=== PATIENT | female | born 2000 | race Asian ===

== ENCOUNTER 2019-07-15 18:03 | Inpatient (IN) ==
[2019-07-15 18:35] LABS: Appearance Urine Clear (Clear); Bacteria Urine Automated Negative (Negative); Bilirubin Urine Negative (Negative); Blood Urine 3+ (Negative); Color Urine Dark Yellow; Epithelial Cell Urine Auto 20-30 /lpf (0-5); Glucose Urine UA Negative (Negative); Ketones Urine Negative (Negative); Leukocyte Esterase Urine Negative (Negative); Nitrite Urine Negative (Negative); Protein Urine Negative (Negative); RBC Urine Automated >30 /hpf (0-4); Specific Gravity Urine 1.023 (1.000-1.030); Urobilinogen Urine Negative (Negative)
[2019-07-15 18:57] LABS: Amphetamines+Metham, Urine Pos (Neg); Barbiturates, Urine Neg (Neg); Benzodiazepine, Urine Pos (Neg); Cocaine, Urine Neg (Neg); MDMA (Ecstacy), Urine Neg (Neg); Methadone, Urine Neg (Neg); Opiate, Urine Neg (Neg); Phencyclidine, Urine Neg (Neg)
[2019-07-15 19:26] LABS: Basophils # (auto) 0.04 K/uL (0-0.2); Basophils % (auto) 0.5 %; Eosinophils # (auto) 0.14 K/uL (0-0.5); Eosinophils % (auto) 1.8 %; Hematocrit (blood only) 41.7 % (37-47); Hemoglobin 14.6 g/dL (12.0-16.0); Immature Granulocytes # (auto) 0.01 K/uL (0.00-0.02); Immature Granulocytes % (auto) 0.1 %; Lymphocytes # (auto) 2.45 K/uL (1.2-3.4); Lymphocytes % (auto) 32.3 %; Mean Corpuscular Hemoglobin 29.6 pg (25-34); Mean Corpuscular Volume 84.6 fL (80-100); Mean Platelet Volume 9.1 fL (7.4-10.4); Neutrophils # (auto) 4.64 K/uL (1.4-6.5); Neutrophils % (auto) 61.3 %; Platelet Count 355 K/uL (130-400); RDW Coefficient of Variation 11.9 % (11.5-14.5); RDW Standard Deviation 36.4 fL (36.4-46.3); Red Blood Count 4.93 M/uL (4.2-5.4); White Blood Count 7.58 K/uL (4.8-10.8)
[2019-07-15 19:42] LABS: Alanine Aminotransferase 27 U/L (12-78); Albumin Level 4.2 gm/dl (3.4-5.0); Aspartate Aminotransferase 12 U/L (15-37); BUN Creatinine Ratio 8.5 (10-20); Blood Urea Nitrogen 7 mg/dl (7-18); Calcium 9.3 mg/dl (8.5-10.1); Carbon Dioxide 28 mmol/L (21-32); Chloride 103 mmol/L (98-107); Est GFR (African American) 121.2; Est GFR (Non-African American) 104.6; Glucose 96 mg/dl (70-99); Potassium 2.8 mmol/L (3.5-5.1); Sodium 139 mmol/L (136-145)
[2019-07-15] MEDS ORDERED: POTASSIUM CHLORIDE 20 MEQ TABCR PO STA (19:47)
[2019-07-15 19:53] LABS: Albumin Globulin Ratio 1.2 (0.9-2); Alkaline Phosphatase 79 U/L (45-117); Bilirubin,Total 0.5 mg/dl (0.2-1); Globulin 3.6 gm/dl (2.5-4.0); Total Protein 7.8 gm/dl (6.4-8.2)
[2019-07-15 20:26] LABS: Acetaminophen < 2 ug/ml (10-30); Salicylate < 1.7 mg/dl (2.8-20)
--- NOTE | 2019-07-15 21:13 | Emergency Department Note ---
Entered by Richelle Shepherd acting as a scribe for Александр Christopher MD History of Present Illness General Chief complaint: Mental Health Evaluation Stated complaint: MHID Time Seen by Provider: 07/15/19 18:10 Source: patient and other ([facility]) History of Present Illness Onset (ago): week(s) 2 Location: head (mental health evaluation ) Pain Consistency: + constant Associated symptoms: + other (SI with plan to hang) The patient is a 18 year old female with a PMHx pertinent for depression, psoriasis, and no other medical problems indicated on Cartilix who was sent to the Emergency Room today from [facility] for a mental health evaluation. The patient explains that her depression has worsened in the past 2 weeks due to family worries, recent college campus transfer, and psoriasis diagnosis. She states that she is not comfortable at her new college campus because it is too crowded and she does not like to be around that many people. The patient admits that she has been isolating herself in her room and missing class. She also admits to SI with plan to hang herself and went to the store for rope. The patient is willing to sign herself in as an inpatient for help. She offers no additional concerns at this time. Home Medications Home Medications Medication Instructions Recorded Confirmed Type Iron Jelly 1 dose PO DAILY 07/15/19 07/15/19 History Allergies Allergy/AdvReac Type Severity Reaction Status Date / Time No Known Allergies Allergy Unverified 07/15/19 18:47 Past Med/Surg History Medical History (Updated 07/15/19 @ 22:56 by Александр Chrisotpher MD) Depression Psoriasis Social History Feels Safe at Home: Yes Smoking Status: Never smoker Tobacco Type: cigarettes ; Review of Systems See HPI for pertinent positives & negatives. and A total of 10 systems reviewed and were otherwise negative Physical Exam Vital Signs Vital Signs - 24 hr 07/15/19 18:00 07/15/19 20:00 Temperature 36.7 C Temperature Source Oral Pulse Rate 71 Pulse Rate [Right Finger] 68 Pulse Rhythm Regular Pulse Strength Normal Respiratory Rate 20 16 Respiratory Effort / Characteristics Non-Labored Non-Labored Respiratory Depth Normal Normal Respiratory Pattern Regular Regular Blood Pressure 112/76 Blood Pressure [Right Arm] 106/69 Blood Pressure Mean 88 Blood Pressure Mean [Right Arm] 81 Blood Pressure Position Sitting Blood Pressure Position [Right Arm] Sitting Pulse Oximetry 98 98 Oxygen Delivery Method Room Air Room Air GENERAL: Flat affect, well nourished, non-toxic. EYE EXAM: Normal conjunctiva. PERRL, no anisocoria and EOM's grossly intact w/o pain. OROPHARYNX: Moist mucus membranes. Grossly normal dentition. NECK: Supple, no nuchal rigidity, no adenopathy, non-tender. no signs of m eningismus. LUNGS: Clear to auscultation. Normal chest wall mechanics. HEART: NSR, no MRG. ABDOMEN: Abdomen soft, non-tender, normo-active bowel sounds, no masses, no rebound or guarding. BACK: No CVA TTP. SKIN: No rashes and no bruising. UPPER EXTREMITIES: Upper extremities are grossly normal. NEURO EXAM: A&O x3, cranial nerves II-XII grossly intact, normal speech, moves all 4 extremities on command w/o issue. Psych: Causative SI, no HI or AVH Course Course 1819: Past medical records reviewed. The patient was evaluated in room A07. A complete history and physical exam was performed. 2100: The patient is accepted for admission at [address] [place] [address]. The patient verbally expressed understanding and agreement of the treatment plan. The patient will be evaluated for further treatment. Administered Medications Discontinued Medications Potassium Chloride (Klor-Con M20) 40 meq PO NOW STA Stop: 07/15/19 19:48 Last Admin: 07/15/19 21:01 Dose: 40 meq Documented by: [id number] Medical Decision Making Differential Diagnosis Differential diagnosis includes but is not limited to etiologies such as mood disorder, infection, hypoglycemia, electrolyte abnormalities, cardiac sources, intracerebral event, toxicologic, neurologic, as well as others were entertained. Medical Records Attestation: I reviewed the patient's medical records. Home Medications Current Medication List: was personally reviewed by me Laboratory Data Attestation: I reviewed the patient's lab results. Result diagrams: 07/15/19 19:13 07/15/19 19:13 Lab Results 07/15/19 07/15/19 07/15/19 Range/Units 18:23 18:23 19:13 WBC 7.58 (4.8-10.8) K/uL RBC 4.93 (4.2-5.4) M/uL Hgb 14.6 (12.0-16.0) g/dL Hct 41.7 (37-47) % MCV 84.6 (80-100) fL MCH 29.6 (25-34) pg MCHC 35.0 (32-36) g/dL RDW Std Deviation 36.4 (36.4-46.3) fL RDW Coeff of Flaco 11.9 (11.5-14.5) % Plt Count 355 (130-400) K/uL MPV 9.1 (7.4-10.4) fL Immature Gran % (Auto) 0.1 % Neut % (Auto) 61.3 % Lymph % (Auto) 32.3 % [place] % (Auto) 4.0 % Eos % (Auto) 1.8 % Baso % (Auto) 0.5 % Immature Gran # (Auto) 0.01 (0.00-0.02) K/uL Neut # (Auto) 4.64 (1.4-6.5) K/uL Lymph # (Auto) 2.45 (1.2-3.4) K/uL [place] # (Auto) 0.30 (0.11-0.59) K/uL Eos # (Auto) 0.14 (0-0.5) K/uL Baso # (Auto) 0.04 (0-0.2) K/uL Sodium (136-145) mmol/L Potassium (3.5-5.1) mmol/L Chloride (98-107) mmol/L Carbon Dioxide (21-32) mmol/L Anion Gap (3-11) BUN (7-18) mg/dl Creatinine (0.6-1.2) mg/dl Est Cr Clr Drug Dosing Est GFR ( Amer) Est GFR (Non-Af Amer) BUN/Creatinine Ratio (10-20) Glucose (70-99) mg/dl Calcium (8.5-10.1) mg/dl Total Bilirubin (0.2-1) mg/dl AST (15-37) U/L ALT (12-78) U/L Alkaline Phosphatase (45-117) U/L Total Protein (6.4-8.2) gm/dl Albumin (3.4-5.0) gm/dl Globulin (2.5-4.0) gm/dl Albumin/Globulin Ratio (0.9-2) TSH (0.300-4.500) uIu/ml Urine Color Dark Yellow Urine Appearance Clear (Clear) Urine pH 7.0 (4.5-7.5) Ur Specific [place] 1.023 (1.000-1.030) Urine Protein Negative (Negative) Urine Glucose (UA) Negative (Negative) Urine Ketones Negative (Negative) Urine Blood 3+ H (Negative) Urine Nitrite Negative (Negative) Urine Bilirubin Negative (Negative) Urine Urobilinogen Negative (Negative) Ur Leukocyte Esterase Negative (Negative) Urine WBC (Auto) 1-5 (0-5) /hpf Urine RBC (Auto) >30 H (0-4) /hpf U Hyaline Cast (Auto) 5-10 H (0-5) /lpf U Epithel Cells (Auto) 20-30 H (0-5) /lpf Urine Bacteria (Auto) Negative (Negative) Salicylates (2.8-20) mg/dl Urine Opiates Screen Neg (Neg) Ur Methadone, Qual Neg (Neg) Acetaminophen (10-30) ug/ml Urine Barbiturates Neg (Neg) Ur Phencyclidine (PCP) Neg (Neg) U Amphetamin/Meth Scrn Pos H (Neg) MDMA (Ecstasy) Screen Neg (Neg) U Benzodiazepines Scrn Pos H (Neg) Ur Cocaine Metabolite Neg (Neg) U Marijuana (THC) Screen Neg (Neg) Ethyl Alcohol mg/dL (0-3) mg/dl 07/15/19 07/15/19 07/15/19 Range/Units 19:13 19:13 19:13 WBC (4.8-10.8) K/uL RBC (4.2-5.4) M/uL Hgb (12.0-16.0) g/dL Hct (37-47) % MCV (80-100) fL MCH (25-34) pg MCHC (32-36) g/dL RDW Std Deviation (36.4-46.3) fL RDW Coeff of Flaco (11.5-14.5) % Plt Count (130-400) K/uL MPV (7.4-10.4) fL Immature Gran % (Auto) % Neut % (Auto) % Lymph % (Auto) % [place] % (Auto) % Eos % (Auto) % Baso % (Auto) % Immature Gran # (Auto) (0.00-0.02) K/uL Neut # (Auto) (1.4-6.5) K/uL Lymph # (Auto) (1.2-3.4) K/uL [place] # (Auto) (0.11-0.59) K/uL Eos # (Auto) (0-0.5) K/uL Baso # (Auto) (0-0.2) K/uL Sodium 139 (136-145) mmol/L Potassium 2.8 L (3.5-5.1) mmol/L Chloride 103 (98-107) mmol/L Carbon Dioxide 28 (21-32) mmol/L Anion Gap 8.0 (3-11) BUN 7 (7-18) mg/dl Creatinine 0.81 (0.6-1.2) mg/dl Est Cr Clr Drug Dosing Not Reportable Est GFR ( Amer) 121.2 Est GFR (Non-Af Amer) 104.6 BUN/Creatinine Ratio 8.5 L (10-20) Glucose 96 (70-99) mg/dl Calcium 9.3 (8.5-10.1) mg/dl Total Bilirubin 0.5 (0.2-1) mg/dl AST 12 L (15-37) U/L ALT 27 (12-78) U/L Alkaline Phosphatase 79 (45-117) U/L Total Protein 7.8 (6.4-8.2) gm/dl Albumin 4.2 (3.4-5.0) gm/dl Globulin 3.6 (2.5-4.0) gm/dl Albumin/Globulin Ratio 1.2 (0.9-2) TSH 1.340 (0.300-4.500) uIu/ml Urine Color Urine Appearance (Clear) Urine pH (4.5-7.5) Ur Specific [place] (1.000-1.030) Urine Protein (Negative) Urine Glucose (UA) (Negative) Urine Ketones (Negative) Urine Blood (Negative) Urine Nitrite (Negative) Urine Bilirubin (Negative) Urine Urobilinogen (Negative) Ur Leukocyte Esterase (Negative) Urine WBC (Auto) (0-5) /hpf Urine RBC (Auto) (0-4) /hpf U Hyaline Cast (Auto) (0-5) /lpf U Epithel Cells (Auto) (0-5) /lpf Urine Bacteria (Auto) (Negative) Salicylates < 1.7 L (2.8-20) mg/dl Urine Opiates Screen (Neg) Ur Methadone, Qual (Neg) Acetaminophen < 2 L (10-30) ug/ml Urine Barbiturates (Neg) Ur Phencyclidine (PCP) (Neg) U Amphetamin/Meth Scrn (Neg) MDMA (Ecstasy) Screen (Neg) U Benzodiazepines Scrn (Neg) Ur Cocaine Metabolite (Neg) U Marijuana (THC) Screen (Neg) Ethyl Alcohol mg/dL < 3.0 (0-3) mg/dl Blood Pressure Blood Pressure Findings: Low blood pressure Blood Pressure Disposition: Referred to patients primary care provider MDM Narrative The patient is a 18 year old female with a PMHx pertinent for depression, psoriasis, and no other medical problems indicated on Cartilix who was sent to the Emergency Room today from [facility] for a mental health evaluation. She was seen and evaluated the bedside. The patient has been a referral from Due to concern for active SI. The patient reportedly had a prior thoughts of buying a rope and hang herself. Patient is a voluntary did have a 302 petition sent. The patient did have blood work completed. Mild hypokalemia. This was repleted. The patient was medically cleared seen and evaluated by psych casey saw operator made a referral and the patient was accepted to [facility]. Impression & Plan Suicide ideation, Depressed mood, Hypokalemia Discharge Plan Visit Data Chief Complaint: Mental Health Evaluation Stated Complaint: MHID ED Provider: Александр Christopher Discharge Problem: Suicide ideation, Depressed mood, Hypokalemia Patient Disposition: Admitted As Inpatient Discharge Instructions Interventions: ED Discharge Assessment Last Done: 07/15/19 22:22 The tasha's documentation has been prepared under my direction and personally reviewed by me in its entirety. I confirm that the note above accurately reflects all work, treatment, procedures, and medical decision making performed by me.
[2019-07-15] MEDS ORDERED: ACETAMINOPHEN 325 MG TAB PO PRN (21:53)
[2019-07-15] MEDS ORDERED: ALUMINUM/MAGNESIUM SUSP 30 ML UDC PO PRN (21:53)
[2019-07-15] MEDS ORDERED: BISMUTH SUBSALICYLATE PER ML OMNICELL CHARGE PO PRN (21:53)
[2019-07-15] MEDS ORDERED: SODIUM CHLORIDE 0.65% NA SOLN 45 ML (OCEAN) PRN (21:53)
[2019-07-15] MEDS ORDERED: MAGNESIUM HYDROXIDE SUSP 30 ML UDC PO PRN (21:53)
--- NOTE | 2019-07-16 09:02 | History & Physical ---
Date of Service July 16, 2019 Impression / Recommendations Impression 18-year-old female admitted voluntarily for inpatient psychiatric treatment on 07/15/19 after presenting to the ED via police, upon referral from [facility]. Pt admitted to increased symptoms of depression over the past two weeks, accompanied by intermittent SI. She had reported researching ways to end her life, and had reportedly looked at rope at [employer], admitting to identifying a place to hang herself. These statements were reported during a urgent therapy visit at [facility], and patient was recommended for mental health evaluation. 302 petitioning statement was completed, though patient did sign involuntarily for treatment. She signed a 72-hour notice requesting to leave treatment, which expires on 07/19/2019 at 0900. Expectations of voluntary treatment were explained to the patient, who was informed by multiple staff that she will not be discharged today. Patient was encouraged to attend group programming, and participate in discharge and safety planning to ensure that she is appropriate for discharge within the timeline requested. Due to level of distress related to admission, patient was not able to participate in a productive conversation regarding antidepressant options. It seems as though they may be beneficial for her as it is possible she is minimizing reports of depressive symptoms. It is also possible that her depression is highly episodic, and that initial therapy without medications may be appropriate as well. We will attempt to gather collateral information from outpatient supports in order to determine the severity of her reported depression. Patient states she is not currently suicidal; however, reports meeting 302 petitioning statement are highly concerning for potential to act on multiple researched plans. At this time, inpatient psychiatric admission is medically necessary due to risk of acute harm to self if she is discharged without adequate medication of risk factors. Pt did sign a 72-hour notice as a request to leave treatment AMA. This request was addressed by multiple staff, including psychiatrist and this PA-C. Statements made in 302 petition are concerning and demonstrate patient is at acute risk of harm to self if she does not receive adequate psychiatric intervention. At this time, it is not appropriate for patient to be discharged, as there has been no communication with supports, no aftercare arrangements made, and no engagement in treatment to suggest that patient's risk factors have been mitigated. It was decided that patient requires ongoing inpatient psychiatric treatment. It is possible that she may require an involuntary commitment if she continues to be resistant to treatment and demanding to leave, 302 petitioning statement remains on her chart. Dr. Cecilia Kothari was directly involved in review and discussion of the patient's case and participated in medical decision making regarding treatment recommendations. (1) Suicide ideation: 07/16 - Admitted to a locked inpatient behavioral health unit, on q15 minute safety checks - Encourage medication initiation/adjustments as indicated - Encourage participation in group and recreational therapies - Gather collateral information from outpatient providers - Suggest family meeting to involve outpatient supports in safety planning - Arrange appropriate aftercare (2) Depressed mood: 07/16 - Attempt to gather collateral information to determine extent of depressive symptoms. By patient's report alone, it is not clear that antidepressant medications are indicated; however, it is belived that patient may be minimizing her symptoms - additional history from friends would be helpful to further clarify this. - Consider trail of an SSRI if indicated; fluoxetine may be a decent choice given concern for weight and history of disordered eating behaviors - Coordinate with [facility] regarding therapy appointment, willingness to continue seeing patient for aftercare following discharge - Will need a psychiatric prescriber if medications are offered - Coordinate with [employer] regarding academic standing and disciplinary actions related to falsified information - Encourage participation in group and recreational programming - Encourage 1:1 counseling to process individual stressors and ways to cope with her depression - Support meeting with either parents or friends (3) Hypokalemia: 07/16 - Presented as hypokalemic in the ED - K=2.8. Pt was given 40 mEq in the ED - Potassium rechecked this morning, remaining improved but still low - K=3.2 - Generally, it would be expected that nutritional intake would allow for continued improvement; however, patient is admitted to restrictive eating behaviors, having refused dinner and breakfast. - Since we cannot rely on nutritional intake alone, and additional dose of 40mEq potassium was ordered, and labs will be rechecked in the morning - Pt was strongly encouraged to eat meals routinely on the unit, though presently states she will not be eating here (4) Disordered eatin/27 - Reported history of binge-eating and purging behavior for a period of 1 year. States she has not engaged in these behavior in the past year - Pt has reported routine dietary supplements and states she is not eating meals routinely at home as "I'm not hungry" and "I'm trying to lose weight - Pt was educated on importance of fueling our bodies and minds in a healthy way, and that this is possible even with desire for weight loss - Will attempt initial encouragement; however, staff was requested to continue to observe nutritional intake and for any suspicious behavior surrounding meals - If patient is not eating meals consistently, a dietary consult should be pursued - it is possible eating disorder protocol may be necessary as well Eating disorder type: unspecified eating disorder Qualified Code(s): F50.9 - Eating disorder, unspecified Risk Factors Assessment Male: No : No Do You Have Access To A Gun?: No Health Problems: No Mental Health Diagnoses: No Previous Attempt: No Previous Psychiatric Hospitalization: No Hopelessness: No Smoker: Yes Protective Factors Assessment : No Responsible for Young Children: No Employed: No Stable Relationships: No Supportive Family: Yes (but geographyically isolated; doesn't share MH issues with parents) Psychiatric History Identifying Data WILBERTO DEE is a 18-year-old F who currently lives in [place]. Pt has no prior psychiatric treatment, and was admitted on 07/15/19 21:53 on a 201 voluntary commitment for severe depressive symptoms with consideration to commit suicide by hanging herself. 302 Petitioning Statement was completed by [facility]. Information is gathered from ED documentation and the patient herself. Chief Complaint "Well, actually. Now I'm pretty sad. I just want to go home." History of Present Illness Wilberto Dee (Bella) is a 18-year-old Swazi female admitted voluntarily for inpatient psychiatric treatment on 07/15/2019, after presenting to the ED via police. It was reported that patient had been seen for an urgent therapy visit at [facility], where she had disclosed increased depression and suicidal thoughts. Patient had admitted to researching multiple ways that she could, ultimately deciding on hanging. It was reported she was also researching humane ways to end the life of her cat as well. 302 Petitioning Statement completed by Richelle at [facility], and as summarized reads: "BANDAR reported that she has been researching "pain-free and beautiful" ways to over the last 2 weeks, including cutting, hanging, and shooting herself...reported that she has looked at rope at [employer] and identified a place to hang herself...BANDAR identified her cat as her "best friend" and said that she has researched ways to kill the cat along with herself...she has not been attending class or socializing,...reports few supports here, and said that she does not feel she can tell her parents how she feels, for fear that they'll be disappointed...She reported paranoid thoughts a bout "an old man" following her; she said she has not seen this person but doesn't feel comfortable going out at night because of this fear. She also reported seeing grass, butterflies, and a garden on her ceiling, and said she doesn't know if this is a "dream" or hallucination...She reported no reasons to live when asked and said she spends her days alone in her room researching ways to ." Patient ultimately signed in for treatment voluntarily; however, 302 petitioning statement remains in her chart. Patient did sign a 72-hour notice, requesting to leave treatment AMA. This notice expires on 07/19/2018 at 0900. Patient is initially cooperative with psychiatric evaluation. She admits that she has been feeling depressed for "a long time". She states that currently she is "sad" as "I just want to go home." Patient was asked to explain the situation that led to her presenting to the emergency room. Patient states "I just been feeling depressed, but I was not even thinking about the hospital." Patient states that she disclosed her low mood and suicidal thoughts to a friend, who encouraged her to talk with a therapist. Patient states "I went and we talked about things, it actually help me feel better. I do not know why they wanted me to come here." Patient does admit that she had difficulty understanding the steps to her admission process, and remains unsure as to why individuals are so concerned about her thinking and depression. Patient admits to episodes of suicidal ideation, but states "I do not think I have ever seriously thought about doing it." Patient shares with this provider that 2 weeks prior to this admission she had been experiencing depressed mood, and was on the phone with a friend from [place]. Patient states "I was depressed and I had alcohol. We were sharing sad stories with each other, and looking up ways we could commit suicide." Even after multiple questions, it remains unclear if her friend was encouraging her to research or discouraging this behavior and offering appropriate support. Nonetheless, patient states she did not act on the thoughts at that time. She states that one week ago, she received an email about having falsified information to the [employer] (falsifying a letter regarding active mental health treatment in order to reduce credit load). Patient states that she was concerned she would be sent home to [place] and became acutely depressed. During a routine trip to the grocery store, she states she passed a rope which she "checked". Patient states she did not purchase the rope, though did not think about using it to end her life. Patient does admit early in our conversation that "I do feel depressed a lot." Duration of the symptoms is described as "for a long time, months, or even year s. I always have it." Patient states that "I did not know at first what it was, I used to like to go places and hanging out with people. Now I do not want to go out, I like being alone with just my cat." Patient admits that she has been more isolative since the summer of this year. She also admits to difficulty falling asleep, which is led to flipping her nights and days. Patient states that she tends to sleep during the day, and is more active in the evenings "when people are not around and I do not have to deal with them." She admits to difficulty with concentrating and decreased appetite. She admits to episodes of hopelessness. Patient states her suicidal ideation is intermittent. Presently, reason for not acting on these thoughts is her perceived obligation to her family. Patient states that her parents are "older" and that she needs to return to [place] after she finishes her degree in order to care for her family. Patient states her parents are not aware of her current symptoms or her hospitalization, as "they are already in family conflict. I do not want to worry them more." Patient admits to anxiety, specifically as it is related to a diagnosis of psoriasis. She states that transfer from [facility] to [place] has been difficult for her due to the larger class size. Patient states that when her psoriasis flares, she experiences increased anxiety related to "staring at me or making comments about my skin." Patient states this is not a concern for her prior to transferring to main campus at [facility]. Pt denies current SI. She denies HI, SIB, A/V hallucinations, paranoia, stuart/hypomania, other symptoms more suggestive of a bipolar presentation, OCD, PTSD, and other specific psychiatric symptoms. She does admit to a history of binging and purging behaviors for a period of one year, last engaging in this behavior about 1 year ago. Patient admits that she has been focused on weight loss, is currently taking a weight loss supplement, and has been restricting her eating. Patient states "I only eat when I am hungry." She is vague when answering questions related to her eating; however, is not even able to admit to eating one meal a day. She does admit to refusing dinner last evening and not eating breakfast this morning. Past Psychiatric History Current Psychiatric Diagnosis: Denies prior diagnoses Outpatient Services: None, one urgent therapy session at [facility] prior to admission Previous Psych Admissions: None Do You Have Access To A Gun?: No Describe Attempts in the Past: Denies/None Past Medication Trials: None Past Head Trauma/Neuro History History of Concussion/Seizure: No Allergies Allergy/AdvReac Type Severity Reaction Status Date / Time No Known Allergies Allergy Unverified 07/15/19 18:47 Home Medications Home Medications Medication Instructions Recorded Confirmed Type Iron Jelly 1 dose PO DAILY 07/15/19 07/15/19 History Family History Family History of: Doesn't Know (has never been discussed with patient) Alcohol History Hx of Alcohol Use Over the Past 12 Months: Yes AUDIT Total Score: 0 Patient admits to periodic consumption of alcohol. Generally in social situations, though 2 weeks prior to admission was drinking alone while on the phone with a friend. Patient states consumption ranges from "couple beers where I cannot really feel anything from it" to "getting drunk". Patient denies any significant concerns related to her current alcohol consumption. Smoking Use Have You Smoked or Used Tobacco Products in the Last 30 Days: Yes tobacco type: cigarettes and e-cigarettes Smoking Status: Light tobacco smoker (5-10 cigarettes at most) Substance History Hx of Prescription Med Misuse Over the Past 12 Months: No Hx of Over the Counter Med Misuse Over the Past 12 Months: No Hx of Inhalent Misuse Over the Past 12 Months: No Hx of Organic Substance Use Over the Past 12 Months: No Hx of Illegal Substances/Street Drug Use Over Past 12 Months: Yes (Pt. states she takes diet pills from [facility]) Problems as a Result of Past Substance Use: None Identified Patient denies regular use of marijuana. She denies any experimentation with i llicit substances. Patient does admit to taking a dietary supplement from [place], and is unsure of contents. Patient was informed of positive drug screen for methamphetamine/amphetamine and benzodiazepines. Patient is unsure the cause of this, denies consuming any of the substances. Personal History Living Arrangements: Dorm (With one roommate, 2 pets) Born In: [place], parents still reside there Highest Grade Completed: Some College (Currently in [employer] at [employer], majoring in economics) Highest Grade Completed Comment: Patient recently switched from the [facility] to [place] - fall Employment Status: Student Marital Status: Single Number Of Children: None Beliefs That Will Affect Care: None Current Legal Problems: No Hx Traumatic Life Events: Yes Psychological Trauma History Comment: Patient states that 4 years ago, her grandfather in their home. It was patient who eventually found him. Struggles with guilt related to having found him sooner. Denies history of physical, emotional, or sexual abuse. Patient History Medical History Depression Psoriasis Family History Grandfather (Maternal) Heart disease Social History Preferred Language: Cuban Communication Ability: Effective Beliefs That Will Affect Care: None Feels Safe at Home: Yes Smoking Status: Light tobacco smoker Tobacco Type: cigarettes ; Review of Systems Review of Systems: Constitutional: denied Cardiovascular: denied Respiratory: denied Gastrointestinal: denied Neurological: denied Psychiatric: denies symptoms other than stated above Total of at least 10 systems reviewed, pertinent positives as above and in HPI. Physical Exam Psychiatric: Orientation: alert, oriented x 3 and cooperative (Officially) Initially superficially pleasant; however became argumentative when requesting discharge Apperance: appropriately dressed, appropriately groomed and appeared stated age Obese appearing female seated in no acute distress. She is casually dressed, wearing a long sleeve T-shirt leggings. Patient has shoulder- length hair, that is dyed a light brown color with roots a darker brown. She is wearing trendy corrective lenses and nails are neatly manicured. Level of hygiene and grooming appears appropriate. Eye Contact: good eye contact Motor Behavior: steady gait and station and no abnormal motor movements (Mild restlessness observed, as patient is picking at fingernails) Speech: normal rate/rhythm/volume of speech Affect: + blunted affect and mood congruent with affect Mood: + depressed mood ("I just been feeling depressed" and "I do feel depression a lot") and + anxious mood (Since admission, related to not being discharged today) Thought Process: goal directed thought process, clear/coherent thought process and thought association intact Thought Content: reality based without delusions, + hopelessness (Intermittently) and + loneliness Suicidal Thoughts: denies suicidal thoughts (Presently, but admits to increased SI over the past 2 weeks) and denies suicidal intent ("I do not think I would have seriously done it"); + reports suicidal plan (Researched multiple plans, had visualized rope, location picked out) Homicidal Thoughts: denies homicidal thoughts Hallucinations: no auditory hallucinations and no visual hallucinations Reports 2 occasions of seemingly hypnagogic visualizati on of "a garden on the ceiling" Cognition: remote memory grossly intact, attention grossly intact and language grossly intact (mild language/comprehension barrier due to varying cultures) Insight: + limited insight Judgement: + limited judgement Vital Signs (Past 24 Hours): Last Vital Signs Temp 36.4 C L 07/16/19 07:08 Pulse 91 H 07/16/19 07:09 Resp 18 07/16/19 07:08 BP 107/72 07/16/19 07:09 Pulse Ox 96 07/15/19 22:35 Exam Statement: A physical exam was performed in the ER prior to admission to the unit by Dr. Александр Christopher MD. I accept that physical as correct/medical clearance for the inpatient physical exam. Results & Data Laboratory Results Laboratory Results - last 24 hr 07/15/19 07/15/19 07/15/19 18:23 18:23 18:23 WBC RBC Hgb Hct MCV MCH MCHC RDW Std Deviation RDW Coeff of Flaco Plt Count MPV Immature Gran % (Auto) Neut % (Auto) Lymph % (Auto) [place] % (Auto) Eos % (Auto) Baso % (Auto) Immature Gran # (Auto) Neut # (Auto) Lymph # (Auto) [place] # (Auto) Eos # (Auto) Baso # (Auto) Sodium Potassium Chloride Carbon Dioxide Anion Gap BUN Creatinine Est Cr Clr Drug Dosing Est GFR ( Amer) Est GFR (Non-Af Amer) BUN/Creatinine Ratio Glucose Calcium Total Bilirubin AST ALT Alkaline Phosphatase Total Protein Albumin Globulin Albumin/Globulin Ratio TSH Urine Color Dark Yellow Urine Appearance Clear Urine pH 7.0 Ur Specific [place] 1.023 Urine Protein Negative Urine Glucose (UA) Negative Urine Ketones Negative Urine Blood 3+ H Urine Nitrite Negative Urine Bilirubin Negative Urine Urobilinogen Negative Ur Leukocyte Esterase Negative Urine WBC (Auto) 1-5 Urine RBC (Auto) >30 H U Hyaline Cast (Auto) 5-10 H U Epithel Cells (Auto) 20-30 H Urine Bacteria (Auto) Negative Salicylates Urine Opiates Screen Neg Ur Methadone, Qual Neg Acetaminophen Urine Barbiturates Neg Ur Phencyclidine (PCP) Neg U Amphetamines Confirm Pending U Amphetamin/Meth Scrn Pos H U Methamphetamin Confrm Pending MDMA (Ecstasy) Screen Neg U OH-Alprazolam Confrm Pending U Benzodiazepines Scrn Pos H 7-Amino Clonazepam Pending Ur Nordiazepam Confirm Pending U OH-ethylflurazepam Pending U Lorazepam Cnf GC/MS Pending U Oxazepam Confm GC/MS Pending Ur Temazepam Confirm Pending U OH-Triazolam Confirm Pending U OH-Midazolam Confirm Pending Ur Cocaine Metabolite Neg U Marijuana (THC) Screen Neg Ethyl Alcohol mg/dL 07/15/19 07/15/19 07/15/19 19:13 19:13 19:13 WBC 7.58 RBC 4.93 Hgb 14.6 Hct 41.7 MCV 84.6 MCH 29.6 MCHC 35.0 RDW Std Deviation 36.4 RDW Coeff of Flaco 11.9 Plt Count 355 MPV 9.1 Immature Gran % (Auto) 0.1 Neut % (Auto) 61.3 Lymph % (Auto) 32.3 [place] % (Auto) 4.0 Eos % (Auto) 1.8 Baso % (Auto) 0.5 Immature Gran # (Auto) 0.01 Neut # (Auto) 4.64 Lymph # (Auto) 2.45 [place] # (Auto) 0.30 Eos # (Auto) 0.14 Baso # (Auto) 0.04 Sodium 139 Potassium 2.8 L Chloride 103 Carbon Dioxide 28 Anion Gap 8.0 BUN 7 Creatinine 0.81 Est Cr Clr Drug Dosing Not Reportable Est GFR ( Amer) 121.2 Est GFR (Non-Af Amer) 104.6 BUN/Creatinine Ratio 8.5 L Glucose 96 Calcium 9.3 Total Bilirubin 0.5 AST 12 L ALT 27 Alkaline Phosphatase 79 Total Protein 7.8 Albumin 4.2 Globulin 3.6 Albumin/Globulin Ratio 1.2 TSH 1.340 Urine Color Urine Appearance Urine pH Ur Specific [place] Urine Protein Urine Glucose (UA) Urine Ketones Urine Blood Urine Nitrite Urine Bilirubin Urine Urobilinogen Ur Leukocyte Esterase Urine WBC (Auto) Urine RBC (Auto) U Hyaline Cast (Auto) U Epithel Cells (Auto) Urine Bacteria (Auto) Salicylates < 1.7 L Urine Opiates Screen Ur Methadone, Qual Acetaminophen < 2 L Urine Barbiturates Ur Phencyclidine (PCP) U Amphetamines Confirm U Amphetamin/Meth Scrn U Methamphetamin Confrm MDMA (Ecstasy) Screen U OH-Alprazolam Confrm U Benzodiazepines Scrn 7-Amino Clonazepam Ur Nordiazepam Confirm U OH-ethylflurazepam U Lorazepam Cnf GC/MS U Oxazepam Confm GC/MS Ur Temazepam Confirm U OH-Triazolam Confirm U OH-Midazolam Confirm Ur Cocaine Metabolite U Marijuana (THC) Screen Ethyl Alcohol mg/dL 07/15/19 07/16/19 19:13 07:13 WBC RBC Hgb Hct MCV MCH MCHC RDW Std Deviation RDW Coeff of Flaco Plt Count MPV Immature Gran % (Auto) Neut % (Auto) Lymph % (Auto) [place] % (Auto) Eos % (Auto) Baso % (Auto) Immature Gran # (Auto) Neut # (Auto) Lymph # (Auto) [place] # (Auto) Eos # (Auto) Baso # (Auto) Sodium Potassium 3.2 L Chloride Carbon Dioxide Anion Gap BUN Creatinine Est Cr Clr Drug Dosing Est GFR ( Amer) Est GFR (Non-Af Amer) BUN/Creatinine Ratio Glucose Calcium Total Bilirubin AST ALT Alkaline Phosphatase Total Protein Albumin Globulin Albumin/Globulin Ratio TSH Urine Color Urine Appearance Urine pH Ur Specific [place] Urine Protein Urine Glucose (UA) Urine Ketones Urine Blood Urine Nitrite Urine Bilirubin Urine Urobilinogen Ur Leukocyte Esterase Urine WBC (Auto) Urine RBC (Auto) U Hyaline Cast (Auto) U Epithel Cells (Auto) Urine Bacteria (Auto) Salicylates Urine Opiates Screen Ur Methadone, Qual Acetaminophen Urine Barbiturates Ur Phencyclidine (PCP) U Amphetamines Confirm U Amphetamin/Meth Scrn U Methamphetamin Confrm MDMA (Ecstasy) Screen U OH-Alprazolam Confrm U Benzodiazepines Scrn 7-Amino Clonazepam Ur Nordiazepam Confirm U OH-ethylflurazepam U Lorazepam Cnf GC/MS U Oxazepam Confm GC/MS Ur Temazepam Confirm U OH-Triazolam Confirm U OH-Midazolam Confirm Ur Cocaine Metabolite U Marijuana (THC) Screen Ethyl Alcohol mg/dL < 3.0 Current Inpatient Medications Current Inpatient Medications: Current Inpatient Medications Acetaminophen (Tylenol) 650 mg PO Q4H PRN PRN Reason: Headache or Minor Fever Stop: 08/14/19 21:52 Al Hydrox/Mg Hydrox/Simethicone (Maalox) 30 ml PO Q4H PRN PRN Reason: GI Upset Stop: 08/14/19 21:52 Bismuth Subsalicylate (Kaopectate) 15 ml PO PRN PRN PRN Reason: Loose Stool Stop: 08/14/19 21:52 Hydroxyzine HCl (Vistaril) 50 mg PO HSZ PRN PRN Reason: Insomnia Stop: 08/14/19 21:52 Hydroxyzine HCl (Vistaril) 25 mg PO Q4H PRN PRN Reason: Anxiety Stop: 08/14/19 21:52 Magnesium Hydroxide (Milk Of Magnesia) 30 ml PO DAILY PRN PRN Reason: Constipation Stop: 08/14/19 21:52 Sodium Chloride ([place] Nasal) 1 - 2 sprays NA PRN PRN PRN Reason: Nasal Dryness/Congestion Stop: 08/14/19 21:52
[2019-07-16] MEDS ORDERED: POTASSIUM CHLORIDE 20 MEQ TABCR PO ONE (13:00)
[2019-07-16] MEDS ORDERED: NICOTINE POLACRILEX 2 MG GUM MT PRN (14:38)
[2019-07-17] MEDS: NICOTINE 14 MG/24 HR PATCH TD SCH (09:10)
--- NOTE | 2019-07-17 11:55 | Psychiatric Progress Note ---
Date of Service July 17, 2019 Impression / Recommendations Impression 18-year-old female admitted voluntarily for inpatient psychiatric treatment on 07/15/19 after presenting to the ED via police, upon referral from [facility]. Pt admitted to increased symptoms of depression over the past two weeks, accompanied by intermittent SI. She had reported researching ways to end her life, and had reportedly looked at rope at [employer], admitting to identifying a place to hang herself. These statements were reported during a urgent therapy visit at [facility], and patient was recommended for mental health evaluation. 302 petitioning statement was completed, though patient did sign involuntarily for treatment. She signed a 72-hour notice requesting to leave treatment, which expires on 07/19/2019 at 0900. (1) Suicide ideation: 07/16 - Admitted to a locked inpatient behavioral health unit, on q15 minute safety checks - Encourage medication initiation/adjustments as indicated - Encourage participation in group and recreational therapies - Gather collateral information from outpatient providers - Suggest family meeting to involve outpatient supports in safety planning - Arrange appropriate aftercare 07/17 -Patient continues to deny continued suicidal ideation and requesting discharge however, based on the acuity of her suicidal ideation and acts of furtherance such as researching means, considering rope purchased at [employer] (which she ultimately did not buy) and ongoing psychosocial stressors, patient felt to be at elevated risk for self-harm if prematurely discharged. She was advised that her 72-hour notice will be due Sunday morning. In the meantime, we will continue to reassess her clinical status and safety. (2) Depressed mood: 07/16 - Attempt to gather collateral information to determine extent of depressive symptoms. By patient's report alone, it is not clear that antidepressant medications are indicated; however, it is belived that patient may be minimizing her symptoms - additional history from friends would be helpful to further clarify this. - Consider trail of an SSRI if indicated; fluoxetine may be a decent choice given concern for weight and history of disordered eating behaviors - Coordinate with [facility] regarding therapy appointment, willingness to continue seeing patient for aftercare following discharge - Will need a psychiatric prescriber if medications are offered - Coordinate with [employer] regarding academic standing and disciplinary actions related to falsified information - Encourage participation in group and recreational programming - Encourage 1:1 counseling to process individual stressors and ways to cope with her depression - Support meeting with either parents or friends 07/17 -Patient acknowledges significant depression and associated worsening anxiety. Social anxiety has been worsening. Consider role of psoriasis in her self-consciousness and suggested dermatology outpatient follow-up -Patient willing to trial Lexapro 10 mg p.o. daily after discussion of risks and benefits for mood and anxiety benefit -She was strongly advised to discontinue the weight loss supplement from [place] that she had been taking at home predating her admission and educated that many of the supplements contain stimulants that may worsen anxiety (3) Hypokalemia: 07/16 - Presented as hypokalemic in the ED - K=2.8. Pt was given 40 mEq in the ED - Potassium rechecked this morning, remaining improved but still low - K=3.2 - Generally, it would be expected that nutritional intake would allow for continued improvement; however, patient is admitted to restrictive eating behaviors, having refused dinner and breakfast. - Since we cannot rely on nutritional intake alone, and additional dose of 40mEq potassium was ordered, and labs will be rechecked in the morning - Pt was strongly encouraged to eat meals routinely on the unit, though presently states she will not be eating here 07/17 -Potassium up to 3.4. Will give 2 more doses of potassium chloride 20 mEq today (4) Disordered eatin/27 - Reported history of binge-eating and purging behavior for a period of 1 year. States she has not engaged in these behavior in the past year - Pt has reported routine dietary supplements and states she is not eating meals routinely at home as "I'm not hungry" and "I'm trying to lose weight - Pt was educated on importance of fueling our bodies and minds in a healthy way, and that this is possible even with desire for weight loss - Will attempt initial encouragement; however, staff was requested to continue to observe nutritional intake and for any suspicious behavior surrounding meals - If patient is not eating meals consistently, a dietary consult should be pursued - it is possible eating disorder protocol may be necessary as well 07/17 -PO intake appears improving today however appetite remains low Risk Factors Assessment Male: No : No Do You Have Access To A Gun?: No Health Problems: No Mental Health Diagnoses: No Previous Attempt: No Previous Psychiatric Hospitalization: No Hopelessness: No Smoker: Yes Protective Factors Assessment : No Responsible for Young Children: No Employed: No Stable Relationships: No Supportive Family: Yes (but geographyically isolated; doesn't share MH issues with parents) Interval History Chief Complaint "I am feeling a lot better". Review of Systems Notes Denies nausea, denies symptoms of panic Sleep Information Total Hours of Sleep: 7 Sleep Comments: pt on q-15 minute checks Meal Information Percent Meal Consumed - Breakfast: 30 Nutrition Comment: per meal log Subjective Subjective Patient was seen & assessed and interval progress reviewed with treatment team. Patient on a 201 voluntary commitment however 72-hour notice has been submitted which will be due on the at 0900. She has been refusing referrals and reportedly minimally participatory yesterday however out of room and more engageable today. Patient reports that she elected to disclose her circumstances and recent emotional duress to her mother via phone call yesterday which was a huge relief, now feeling less alone, better understood. Mother will be visiting over [place]. As such, she reports feeling much less hopeless and is very eager to be discharged from the hospital to get back to her normal life. States she misses her cat, dog, friends, and access to social media and cell phone. She does not perceive that she would be at risk to herself if discharged today however she does acknowledge recent suicidal ideation. She describes abrupt suicidal fantasy in considering hanging herself upon seeing rope at [facility] last week. She also acknowledges researching ways to harm herself in the past 2 weeks. She denies self-harm attempts. She describes in general a progressive decline in functioning with increasing isolation and withdrawal as mood declined and anxiety worsened. She identifies her psoriasis as a significant nidus for social anxiety. She reports anxiety predating onset of psoriasis but this has worsened. She has begun to feel more uncomfortable in the company of others, worried they are looking at her skin on her face or that she has a flake of skin in her hair. She has been declining invitations. Recently left a trip to [place] early feeling anxious there. Appetite has been diminished. She has been sleeping more in the daytime and awake overnight feeling more comfortable alone. Notably she reports she has been taking some sort of weight loss supplement him [place] that she refers to as "DC" and uncertain of active ingredients. She denies disordered eating in the form of binging, purging, or purposeful caloric restriction at present. Reviewed academic stressor and she reports that she withdrew last semester from the curriculum at [employer] due to emotional upset regarding her parents . She now is facing potential consequences from the provider sta tement that she reports she paid for and obtained online. She rather perseveratively returned to the possibility of discharge today stating that it feels like half-way to be here. She was advised that, based on her presentation, it is premature to consider discharge despite the fact that she is feeling a little bit better in the past 24 hours. Reviewed goals of acute intervention and discussed risks and benefits in considering pharmacotherapy and she ultimately was reluctantly accepting. Physical Exam Psychiatric Orientation: alert and oriented x 3 Apperance: appropriately dressed and appeared stated age Eye Contact: + fair eye contact Motor Behavior: steady gait and station and no abnormal motor movements Speech: normal rate/rhythm/volume of speech (overproductive) Affect: + anxious affect Mood: + depressed mood ("but better today") and + anxious mood Thought Process: clear/coherent thought process and + perseveration Thought Content: reality based without delusions Suicidal Thoughts: denies suicidal thoughts, denies suicidal plan and denies suicidal intent Homicidal Thoughts: denies homicidal thoughts Hallucinations: no auditory hallucinations, no visual hallucinations and no tactile hallucinations Cognition: recent memory grossly intact Estimated Intelligence: average estimated intelligence Insight: + fair insight Judgement: + fair judgement Vital Signs (Past 24 Hours) Last Vital Signs Temp 36.5 C 07/17/19 06:00 Pulse 60 07/17/19 06:00 Resp 16 07/17/19 06:00 BP 102/68 07/17/19 06:00 Pulse Ox 96 07/15/19 22:35 Results & Data Laboratory Results Laboratory Results - last 24 hr 07/17/19 06:30 Potassium 3.4 L Current Inpatient Medications Current Inpatient Medications: Current Inpatient Medications Acetaminophen (Tylenol) 650 mg PO Q4H PRN PRN Reason: Headache or Minor Fever Stop: 08/14/19 21:52 Al Hydrox/Mg Hydrox/Simethicone (Maalox) 30 ml PO Q4H PRN PRN Reason: GI Upset Stop: 08/14/19 21:52 Bismuth Subsalicylate (Kaopectate) 15 ml PO PRN PRN PRN Reason: Loose Stool Stop: 08/14/19 21:52 Hydroxyzine HCl (Vistaril) 50 mg PO HSZ PRN PRN Reason: Insomnia Stop: 08/14/19 21:52 Hydroxyzine HCl (Vistaril) 25 mg PO Q4H PRN PRN Reason: Anxiety Stop: 08/14/19 21:52 Magnesium Hydroxide (Milk Of Magnesia) 30 ml PO DAILY PRN PRN Reason: Constipation Stop: 08/14/19 21:52 Miscellaneous (Remove Nicoderm Patch) 1 ea N/A DAILY@0859 [facility] Stop: 08/16/19 08:58 Last Admin: 07/17/19 09:11 Dose: Not Given Documented by: Nicotine (Nicoderm Cq) 14 mg TD QAM LAINA Stop: 08/16/19 08:59 Last Admin: 07/17/19 09:10 Dose: Not Given Documented by: Nicotine Polacrilex (Nicorette 2mg) 1 piece MT PRN PRN PRN Reason: nicotine cravings Stop: 08/15/19 14:37 Potassium Chloride (Klor-Con M20) 20 meq PO BID LAINA Stop: 07/17/19 21:01 Sodium Chloride ([place] Nasal) 1 - 2 sprays NA PRN PRN PRN Reason: Nasal Dryness/Congestion Stop: 08/14/19 21:52 Mental Health & Subst Abuse Tx Therapist Name of Therapist: Declined on 07/16 Therapist's Time of Therapist Appointment: Referral sent - please follow up with them Therapy Appointment Comment: [address], [address], [place], [place] Revenue Settlements Administrator Name of Revenue Settlements Administrator: [facility] Phone Number for Revenue Settlements Administrator: [phone] Date of Appointment with Revenue Settlements Administrator: 07/21/19 Time of Appointment with Revenue Settlements Administrator: 2:00 p.m. Case Management Appointment Comment: [address] [facility] Post Discharge Appointments Primary Care Physician Name Of Family Doctor: [facility] Primary Care Time of Appointment with PCP: Follow up as needed Provider Appointment Comment: [facility] [place] Contact Information Discharge Discharge Address: [address] [place] [address], [place] [address] (1) Disordered eating Eating disorder type: unspecified eating disorder Qualified Code(s): F50.9 - Eating disorder, unspecified
[2019-07-17] MEDS: POTASSIUM CHLORIDE 20 MEQ TABCR PO SCH ×2 (12:15→21:30)
[2019-07-17] MEDS: ESCITALOPRAM OXALATE 10 MG TAB PO SCH (12:16)
[2019-07-18] MEDS: ESCITALOPRAM OXALATE 10 MG TAB PO SCH (09:08)
[2019-07-18] MEDS: NICOTINE 14 MG/24 HR PATCH TD SCH (09:11)
--- NOTE | 2019-07-18 14:33 | Psychiatric Progress Note ---
Date of Service July 18, 2019 Impression / Recommendations Impression 18-year-old female admitted voluntarily for inpatient psychiatric treatment on 07/15/19 after presenting to the ED via police, upon referral from [facility]. Pt admitted to increased symptoms of depression over the past two weeks, accompanied by intermittent SI. She had reported researching ways to end her life, and had reportedly looked at rope at [employer], admitting to identifying a place to hang herself. These statements were reported during a urgent therapy visit at [facility], and patient was recommended for mental health evaluation. 302 petitioning statement was completed, though patient did sign involuntarily for treatment. She signed a 72-hour notice requesting to leave treatment, which expires on 07/19/2019 at 0900. (1) Suicide ideation: 07/16 - Admitted to a locked inpatient behavioral health unit, on q15 minute safety checks - Encourage medication initiation/adjustments as indicated - Encourage participation in group and recreational therapies - Gather collateral information from outpatient providers - Suggest family meeting to involve outpatient supports in safety planning - Arrange appropriate aftercare 07/17 -Patient continues to deny continued suicidal ideation and requesting discharge however, based on the acuity of her suicidal ideation and acts of furtherance such as researching means, considering rope purchased at [employer] (which she ultimately did not buy) and ongoing psychosocial stressors, patient felt to be at elevated risk for self-harm if prematurely discharged. She was advised that her 72-hour notice will be due Sunday. In the meantime, we will continue to reassess her clinical status and safety. 07/18 -Flight into health persists. Denies recurrence of suicidal ideation or any passive wish. Today she feels able to contract for safety outside of the hospital environment however she demonstrates some ambivalence about need for follow-up and we discussed the concerning nature of her initial presentation which she seems to want to minimize today. At this time I do not feel that she would meet criteria for involuntary commitment however will have her work on her safety plan and defer discharge to tomorrow morning when her 72-hour notice comes due. (2) Depressed mood: 07/16 - Attempt to gather collateral information to determine extent of depressive symptoms. By patient's report alone, it is not clear that antidepressant medications are indicated; however, it is belived that patient may be minimizing her symptoms - additional history from friends would be helpful to further clarify this. - Consider trail of an SSRI if indicated; fluoxetine may be a decent choice given concern for weight and history of disordered eating behaviors - Coordinate with [facility] regarding therapy appointment, willingness to continue seeing patient for aftercare following discharge - Will need a psychiatric prescriber if medications are offered - Coordinate with [facility] regarding academic standing and disciplinary actions related to falsified information - Encourage participation in group and recreational programming - Encourage 1:1 counseling to process individual stressors and ways to cope with her depression - Support meeting with either parents or friends 07/17 -Patient acknowledges significant depression and associated worsening anxiety . Social anxiety has been worsening. Consider role of psoriasis in her self- consciousness and suggested dermatology outpatient follow-up -Patient willing to trial Lexapro 10 mg p.o. daily after discussion of risks and benefits for mood and anxiety benefit -She was strongly advised to discontinue the weight loss supplement from [place] that she had been taking at home predating her admission and educated that many of the supplements contain stimulants that may worsen anxiety 07/18 -Patient reporting improved mood however affect outwardly appeared more down to the unit staff last evening. -Continue Lexapro 10 mg daily which she denies any side effects from so far. Reviewed importance of continued follow-up as an outpatient to improve likelihood of remission of depression and reduce risk for relapse and associated risks as well as ongoing medication management needs. Pt to review aftercare w/ SW (3) Hypokalemia: 07/16 - Presented as hypokalemic in the ED - K=2.8. Pt was given 40 mEq in the ED - Potassium rechecked this morning, remaining improved but still low - K=3.2 - Generally, it would be expected that nutritional intake would allow for continued improvement; however, patient is admitted to restrictive eating behaviors, having refused dinner and breakfast. - Since we cannot rely on nutritional intake alone, and additional dose of 40mEq potassium was ordered, and labs will be rechecked in the morning - Pt was strongly encouraged to eat meals routinely on the unit, though presently states she will not be eating here 07/17 -Potassium up to 3.4. Will give 2 more doses of potassium chloride 20 mEq today (4) Disordered eatin/27 - Reported history of binge-eating and purging behavior for a period of 1 year. States she has not engaged in these behavior in the past year - Pt has reported routine dietary supplements and states she is not eating meals routinely at home as "I'm not hungry" and "I'm trying to lose weight - Pt was educated on importance of fueling our bodies and minds in a healthy way, and that this is possible even with desire for weight loss - Will attempt initial encouragement; however, staff was requested to continue to observe nutritional intake and for any suspicious behavior surrounding meals - If patient is not eating meals consistently, a dietary consult should be pursued - it is possible eating disorder protocol may be necessary as well 07/17 -PO intake appears improving today however appetite remains low 07/18 -Patient reporting improved appetite today Risk Factors Assessment Male: No : No Do You Have Access To A Gun?: No Health Problems: No Mental Health Diagnoses: No Previous Attempt: No Previous Psychiatric Hospitalization: No Hopelessness: No Smoker: Yes Protective Factors Assessment : No Responsible for Young Children: No Employed: No Stable Relationships: No Supportive Family: Yes (but geographyically isolated; doesn't share MH issues with parents) Interval History Chief Complaint "I want to go home". Review of Systems Notes She denies residual passive wish or suicidal ideation. Sleep Information Total Hours of Sleep: 6.5 Sleep Comments: pt on q-15 minute checks Meal Information Percent Meal Consumed - Breakfast: 80 Percent Meal Consumed - Lunch: 50 Percent Meal Consumed - Dinner: 100 Nutrition Comment: per meal log Subjective Subjective Patient was seen & assessed and interval progress reviewed with treatment team. Per nursing staff, patient was less participatory in group activities last evening, more isolative. She denies that this was because she was feeling more depressed again on interview today and states she was simply tired. She is perseverative really focused on potential discharge. From her perspective she states she feels safe and ready to go. She would like to go black Sunday shopping with her friend. Reviewed petitioning statement from admission indicating concerning circumstances regarding level of suicidality at that time including expressed desire to , researching means to , and considering killing her cat. Reviewed abrupt recompensation however this has occurred within the context of the safe and supportive atmosphere of the behavioral health unit and removal of outside stressors. She has not yet completed her safety plan. Reviewed that her 72-hour notice is up tomorrow morning at 0900. She denies any tolerability concerns so far with the antidepressant. She confirms that she has disclosed to her mother that she has been psychiatrically hospitalized. She rather concretely indicates perception that she will not need to follow up with outpatient psychiatry or therapy "because I will feel better." Physical Exam Psychiatric Orientation: alert and cooperative Apperance: appropriately dressed and appropriately groomed Eye Contact: good eye contact Motor Behavior: steady gait and station and no abnormal motor movements Speech: normal rate/rhythm/volume of speech Affect: no tearful affect Affect appears very mildly constricted in range. She appears somewhat frustrated and disappointed but is not tearful and does not outwardly display overt anger "Good" Thought Process: goal directed thought process and + perseveration Thought Content: reality based without delusions Suicidal Thoughts: denies suicidal thoughts, denies suicidal plan and denies suicidal intent Homicidal Thoughts: denies homicidal thoughts Hallucinations: no auditory hallucinations, no visual hallucinations and no tactile hallucinations Cognition: recent memory grossly intact Estimated Intelligence: average estimated intelligence Insight: + fair insight Judgement: + fair judgement Vital Signs (Past 24 Hours) Last Vital Signs Temp 36.5 C 07/18/19 06:50 Pulse 81 07/18/19 06:51 Resp 18 07/18/19 06:50 BP 94/67 L 07/18/19 06:51 Pulse Ox 96 07/15/19 22:35 Results & Data Current Inpatient Medications Current Inpatient Medications: Current Inpatient Medications Acetaminophen (Tylenol) 650 mg PO Q4H PRN PRN Reason: Headache or Minor Fever Stop: 08/14/19 21:52 Al Hydrox/Mg Hydrox/Simethicone (Maalox) 30 ml PO Q4H PRN PRN Reason: GI Upset Stop: 08/14/19 21:52 Bismuth Subsalicylate (Kaopectate) 15 ml PO PRN PRN PRN Reason: Loose Stool Stop: 08/14/19 21:52 Escitalopram Oxalate (Lexapro Tab) 10 mg PO QAM LAINA Stop: 08/16/19 11:44 Last Admin: 07/18/19 09:08 Dose: 10 mg Documented by: Hydroxyzine HCl (Vistaril) 50 mg PO HSZ PRN PRN Reason: Insomnia Stop: 08/14/19 21:52 Hydroxyzine HCl (Vistaril) 25 mg PO Q4H PRN PRN Reason: Anxiety Stop: 08/14/19 21:52 Magnesium Hydroxide (Milk Of Magnesia) 30 ml PO DAILY PRN PRN Reason: Constipation Stop: 08/14/19 21:52 Miscellaneous (Remove Nicoderm Patch) 1 ea N/A DAILY@0859 [facility] Stop: 08/16/19 08:58 Last Admin: 07/18/19 09:11 Dose: Not Given Documented by: Nicotine (Nicoderm Cq) 14 mg TD QAM LAINA Stop: 08/16/19 08:59 Last Admin: 07/18/19 09:11 Dose: Not Given Documented by: Nicotine Polacrilex (Nicorette 2mg) 1 piece MT PRN PRN PRN Reason: nicotine cravings Stop: 08/15/19 14:37 Sodium Chloride (Powell Nasal) 1 - 2 sprays NA PRN PRN PRN Reason: Nasal Dryness/Congestion Stop: 08/14/19 21:52 Mental Health & Subst Abuse Tx Therapist Name of Therapist: Declined on 07/16 Therapist's Time of Therapist Appointment: Referral sent - please follow up with them Therapy Appointment Comment: [address] [facility], [address], [place], [place] Health Sanitarian Name of Health Sanitarian: [facility] - [facility] Phone Number for Health Sanitarian: [phone] Date of Appointment with Health Sanitarian: 07/21/19 Time of Appointment with Health Sanitarian: 2:00 p.m. Case Management Appointment Comment: [address] [place] [address] Post Discharge Appointments Primary Care Physician Name Of Family Doctor: INEZ LIRIANO Primary Care Time of Appointment with PCP: Follow up as needed Provider Appointment Comment: [facility] Contact Information Discharge Discharge Address: [address] [place] [address], [place] [address] (1) Disordered eating Eating disorder type: unspecified eating disorder Qualified Code(s): F50.9 - Eating disorder, unspecified
--- NOTE | 2019-07-19 07:43 | Psychiatric Progress Note ---
Date of Service July 19, 2019 Impression / Recommendations Impression 18-year-old female admitted voluntarily for inpatient psychiatric treatment on 07/15/19 after presenting to the ED via police, upon referral from [facility]. Pt admitted to increased symptoms of depression over the past two weeks, accompanied by intermittent SI. She had reported researching ways to end her life, and had reportedly looked at rope at [employer], admitting to identifying a place to hang herself. These statements were reported during a urgent therapy visit at [facility], and patient was recommended for mental health evaluation. 302 petitioning statement was completed, though patient did sign involuntarily for treatment. She signed a 72-hour notice requesting to leave treatment, which expires on 07/19/2019 at 0900. Risk Factors Assessment Male: No : No Do You Have Access To A Gun?: No Health Problems: No Mental Health Diagnoses: No Previous Attempt: No Previous Psychiatric Hospitalization: No Hopelessness: No Smoker: Yes Protective Factors Assessment : No Responsible for Young Children: No Employed: No Stable Relationships: No Supportive Family: Yes (but geographyically isolated; doesn't share MH issues with parents) Interval History Chief Complaint "[]". Review of Systems Sleep Information Total Hours of Sleep: 7.75 Sleep Comments: pt on q-15 minute checks Meal Information Percent Meal Consumed - Breakfast: 80 Percent Meal Consumed - Lunch: 50 Percent Meal Consumed - Dinner: 100 Nutrition Comment: per meal log Subjective Subjective Patient was seen & assessed and interval progress reviewed with [treatment team] [nursing and social work] Physical Exam Vital Signs (Past 24 Hours) Last Vital Signs Temp 36.7 C 07/19/19 07:33 Pulse 77 07/19/19 07:33 Resp 16 07/19/19 07:33 BP 102/68 07/19/19 07:33 Pulse Ox 96 07/19/19 07:33 Results & Data Current Inpatient Medications Current Inpatient Medications: Current Inpatient Medications Acetaminophen (Tylenol) 650 mg PO Q4H PRN PRN Reason: Headache or Minor Fever Stop: 08/14/19 21:52 Al Hydrox/Mg Hydrox/Simethicone (Maalox) 30 ml PO Q4H PRN PRN Reason: GI Upset Stop: 08/14/19 21:52 Bismuth Subsalicylate (Kaopectate) 15 ml PO PRN PRN PRN Reason: Loose Stool Stop: 08/14/19 21:52 Escitalopram Oxalate (Lexapro Tab) 10 mg PO QAM LAINA Stop: 08/16/19 11:44 Last Admin: 07/18/19 09:08 Dose: 10 mg Documented by: Hydroxyzine HCl (Vistaril) 50 mg PO HSZ PRN PRN Reason: Insomnia Stop: 08/14/19 21:52 Hydroxyzine HCl (Vistaril) 25 mg PO Q4H PRN PRN Reason: Anxiety Stop: 08/14/19 21:52 Magnesium Hydroxide (Milk Of Magnesia) 30 ml PO DAILY PRN PRN Reason: Constipation Stop: 08/14/19 21:52 Miscellaneous (Remove Nicoderm Patch) 1 ea N/A DAILY@858 [facility] Stop: 08/16/19 08:58 Last Admin: 07/18/19 09:11 Dose: Not Given Documented by: Nicotine (Nicoderm Cq) 14 mg TD QAM LAINA Stop: 08/16/19 08:59 Last Admin: 07/18/19 09:11 Dose: Not Given Documented by: Nicotine Polacrilex (Nicorette 2mg) 1 piece MT PRN PRN PRN Reason: nicotine cravings Stop: 08/15/19 14:37 Sodium Chloride ([place]ath Nasal) 1 - 2 sprays NA PRN PRN PRN Reason: Nasal Dryness/Congestion Stop: 08/14/19 21:52 Mental Health & Subst Abuse Tx Therapist Name of Therapist: Declined on 07/16 Therapist's Time of Therapist Appointment: Referral sent - please follow up with them Therapy Appointment Comment: [address] [place] [address], [address], [place], [place] Digester Capper Name of Digester Capper: [facility] - [facility] Phone Number for Digester Capper: [phone] Date of Appointment with Digester Capper: 07/21/19 Time of Appointment with Digester Capper: 2:00 p.m. Case Management Appointment Comment: [address] [place] [address] Post Discharge Appointments Primary Care Physician Name Of Family Doctor: INEZ Monica Primary Care Time of Appointment with PCP: Follow up as needed Provider Appointment Comment: [facility] Smoking Cessation Counseling Tobacco Cessation Medication Prescribed at Discharge: Not Applicable/Non-Smoker Contact Information Discharge Discharge Address: [facility] [address], [place] [address]
[2019-07-19] MEDS: ESCITALOPRAM OXALATE 10 MG TAB PO SCH (07:44)
[2019-07-19] MEDS: NICOTINE 14 MG/24 HR PATCH TD SCH (07:46)
--- NOTE | 2019-07-19 07:53 | Discharge Summary ---
Date of Service July 19, 2019 History of Present Illness Karthik "Kassi" Larisa is a 18-year-old Salvadorean female admitted voluntarily for inpatient psychiatric treatment on 07/15/2019, after presenting to the ED via police. It was reported that patient had been seen for an urgent therapy visit at [facility], where she had disclosed increased depression and suicidal thoughts. Patient had admitted to researching multiple ways that she could, ultimately deciding on hanging. It was reported she was also researching humane ways to end the life of her cat as well. 302 Petitioning Statement completed by Richelle at [facility], and as summarized reads: "BANDAR reported that she has been researching "pain-free and beautiful" ways to over the last 2 weeks, including cutting, hanging, and shooting herself...reported that she has looked at rope at [employer] and identified a place to hang herself...BANDAR identified her cat as her "best friend" and said that she has researched ways to kill the cat along with herself...she has not been attending class or socializing,...reports few supports here, and said that she does not feel she can tell her parents how she feels, for fear that they'll be disappointed...She reported paranoid thoughts about "an old man" following her; she said she has not seen this person but doesn't feel comfortable going out at night because of this fear. She also reported seeing grass, butterflies, and a garden on her ceiling, and said she doesn't know if this is a "dream" or hallucination...She reported no reasons to live when asked and said she spends her days alone in her room researching ways to ." Patient ultimately signed in for treatment voluntarily; however, 302 petitioning statement remains in her chart. Patient did sign a 72-hour notice, requesting to leave treatment AM. This notice expires on 07/19/2018 at 0900. Patient is initially cooperative with psychiatric evaluation. She admits that she has been feeling depressed for "a long time". She states that currently she is "sad" as "I just want to go home." Patient was asked to explain the si tuation that led to her presenting to the emergency room. Patient states "I just been feeling depressed, but I was not even thinking about the hospital." Patient states that she disclosed her low mood and suicidal thoughts to a friend, who encouraged her to talk with a therapist. Patient states "I went and we talked about things, it actually help me feel better. I do not know why they wanted me to come here." Patient does admit that she had difficulty understanding the steps to her admission process, and remains unsure as to why individuals are so concerned about her thinking and depression. Patient admits to episodes of suicidal ideation, but states "I do not think I have ever seriously thought about doing it." Patient shares with this provider that 2 weeks prior to this admission she had been experiencing depressed mood, and was on the phone with a friend from [place]. Patient states "I was depressed and I had alcohol. We were sharing sad stories with each other, and looking up ways we could commit suicide." Even after multiple questions, it remains unclear if her friend was encouraging her to research or discouraging this behavior and offering appropriate support. Nonetheless, patient states she did not act on the thoughts at that time. She states that one week ago, she received an email about having falsified information to the [employer] (falsifying a letter rega rding active mental health treatment in order to reduce credit load). Patient states that she was concerned she would be sent home to [place] and became acutely depressed. During a routine trip to the grocery store, she states she passed a rope which she "checked". Patient states she did not purchase the rope, though did not think about using it to end her life. Patient does admit early in our conversation that "I do feel depressed a lot." Duration of the symptoms is described as "for a long time, months, or even years. I always have it." Patient states that "I did not know at first what it was, I used to like to go places and hanging out with people. Now I do not want to go out, I like being alone with just my cat." Patient admits that she has been more isolative since the summer of this year. She also admits to difficulty falling asleep, which is led to flipping her nights and days. Patient states that she tends to sleep during the day, and is more active in the evenings "when people are not around and I do not have to deal with them." She admits to difficulty with concentrating and decreased appetite. She admits to episodes of hopelessness. Patient states her suicidal ideation is intermittent. Presently, reason for not acting on these thoughts is her perceived obligation to her family. Patient states that her parents are "older" and that she needs to return to [place] after she finishes her degree in order to care for her family. Patient states her parents are not aware of her current symptoms or her hospitalization, as "they are already in family conflict. I do not want to worry them more." Patient admits to anxiety, specifically as it is related to a diagnosis of psoriasis. She states that transfer from [facility] to [place] has been difficult for her due to the larger class size. Patient states that when her psoriasis flares, she experiences increased anxiety related to "staring at me or making comments about my skin." Patient states this is not a concern for her prior to transferring to [facility]. Pt denies current SI. She denies HI, SIB, A/V hallucinations, paranoia, stuart/hypomania, other symptoms more suggestive of a bipolar presentation, OCD, PTSD, and other specific psychiatric symptoms. She does admit to a history of binging and purging behaviors for a period of one year, last engaging in this behavior about 1 year ago. Patient admits that she has been focused on weight loss, is currently taking a weight loss supplement, and has been restricting her eating. Patient states "I only eat when I am hungry." She is vague when answering questions related to her eating; however, is not even able to admit to eating one meal a day. She does admit to refusing dinner last evening and not eating breakfast this morning. Physical Exam Psychiatric Orientation: alert, oriented x 3 and cooperative Apperance: appropriately dressed, appropriately groomed and appeared stated age Eye Contact: good eye contact Motor Behavior: steady gait and station and no abnormal motor movements Speech: normal rate/rhythm/volume of speech Affect: euthymic affect Mood: no depressed mood ("excited") and no anxious mood Thought Process: clear/coherent thought process Thought Content: reality based without delusions Suicidal Thoughts: denies suicidal thoughts, denies suicidal plan and denies suicidal intent Homicidal Thoughts: denies homicidal thoughts, denies homicidal plan and denies homicidal intent Hallucinations: no auditory hallucinations, no visual hallucinations and no tactile hallucinations Cognition: recent memory grossly intact, remote memory grossly intact and language grossly intact Estimated Intelligence: average estimated intelligence Insight: + fair insight Judgement: + fair judgement Vital Signs (Past 24 Hours) Last Vital Signs Temp 36.7 C 07/19/19 07:33 Pulse 77 07/19/19 07:33 Resp 16 07/19/19 07:33 BP 102/68 07/19/19 07:33 Pulse Ox 96 07/19/19 07:33 Principal Diagnosis Depression; Suicidal Ideation Psychiatric Data Patient admitted as a reluctant voluntary admission following a commitment petition from [facility]. She has not been wholly accepting of need for treatment and has minimized symptom acuity for the majority of her presentation and quickly signed a 72-hour notice which is due today. During her hospital stay she did disclose her depression and recent stressors to her mother which appeared to unburden her significantly and she described that as the turning point from "maximal depression" to feeling much better and more hopeful. She has consistently denied intention for self-harm since her admission and at this time I do not feel that she is getting a lot of therapeutic benefit from the milieu and she will be released at her request at the end of her 72-hour notice this morning. She initially declined therapy and medication management referrals ultimately indicated that she would follow up with [facility] for therapy and medication management. She was started on low-dose Lexapro 10 mg daily during her hospitalization which was well-tolerated. The risks and benefits of SSRIs were reviewed with her and she was strongly encouraged to continue the medication as an outpatient and is aware that she will require physician follow-up for her next refill and she is to utilize [facility] if she is unable to see the prescriber at [facility] in the next 30 days. She has a pending bridge appointment with [facility] on 07/22/2019 at 0900 as well. Medically during her hospitalization she was treated for hypokalemia which was repleted and she was recommended to maintain a well-balanced regular diet. Day of Discharge Assessment On day of discharge patient reports mood as "excited" and looking forward to discharge. She is adamant in her denial of ongoing suicidal ideation. She denies any thoughts of harm to others. Similarly she denies passive wish. She has constructed safety plan and states that she would follow her safety plan should her suicidal thoughts return. Access to emergency care was reviewed. She is tolerating the Lexapro without difficulty. She requests rx sent to [facility] which was done for #30 days no refills. Transition of Care Transition Of Care Record: was reviewed with the patient Advance Directives Advance Directives Information Provided: Yes Advance Directives: No Mental Health Advance Directive: No Advance Directives on File: No Living Will: No Power of Speech Pathology Teacher: No Advance Directives Reason:: Declines as Mental Health Visit. Risk Factors Assessment Male: No : No Do You Have Access To A Gun?: No Health Problems: No Mental Health Diagnoses: No Substance Use Disorders: No Previous Attempt: No Previous Psychiatric Hospitalization: No Hopelessness: No Smoker: Yes Protective Factors Assessment : No Responsible for Young Children: No Employed: No Stable Relationships: No Supportive Family: Yes (but geographyically isolated; doesn't share MH issues with parents) Tobacco Cessation at Discharge Tobacco Cessation Medication Prescribed at Discharge: Not Applicable/Non-Smoker Total Time Total Time Spent: Greater Than 30 Minutes Discharge Data Lab Results 07/15/19 07/15/19 07/15/19 18:23 18:23 19:13 WBC 7.58 RBC 4.93 Hgb 14.6 Hct 41.7 MCV 84.6 MCH 29.6 MCHC 35.0 RDW Std Deviation 36.4 RDW Coeff of Flaco 11.9 Plt Count 355 MPV 9.1 Immature Gran % (Auto) 0.1 Neut % (Auto) 61.3 Lymph % (Auto) 32.3 [place] % (Auto) 4.0 Eos % (Auto) 1.8 Baso % (Auto) 0.5 Immature Gran # (Auto) 0.01 Neut # (Auto) 4.64 Lymph # (Auto) 2.45 [place] # (Auto) 0.30 Eos # (Auto) 0.14 Baso # (Auto) 0.04 Sodium Potassium Chloride Carbon Dioxide Anion Gap BUN Creatinine Est Cr Clr Drug Dosing Est GFR ( Amer) Est GFR (Non-Af Amer) BUN/Creatinine Ratio Glucose Calcium Total Bilirubin AST ALT Alkaline Phosphatase Total Protein Albumin Globulin Albumin/Globulin Ratio TSH Urine Color Dark Yellow Urine Appearance Clear Urine pH 7.0 Ur Specific Adamant 1.023 Urine Protein Negative Urine Glucose (UA) Negative Urine Ketones Negative Urine Blood 3+ H Urine Nitrite Negative Urine Bilirubin Negative Urine Urobilinogen Negative Ur Leukocyte Esterase Negative Urine WBC (Auto) 1-5 Urine RBC (Auto) >30 H U Hyaline Cast (Auto) 5-10 H U Epithel Cells (Auto) 20-30 H Urine Bacteria (Auto) Negative Salicylates Urine Opiates Screen Neg Ur Methadone, Qual Neg Acetaminophen Urine Barbiturates Neg Ur Phencyclidine (PCP) Neg U Amphetamin/Meth Scrn Pos H MDMA (Ecstasy) Screen Neg U Benzodiazepines Scrn Pos H Ur Cocaine Metabolite Neg U Marijuana (THC) Screen Neg Ethyl Alcohol mg/dL 07/15/19 07/15/19 07/15/19 19:13 19:13 19:13 WBC RBC Hgb Hct MCV MCH MCHC RDW Std Deviation RDW Coeff of Flaco Plt Count MPV Immature Gran % (Auto) Neut % (Auto) Lymph % (Auto) [place] % (Auto) Eos % (Auto) Baso % (Auto) Immature Gran # (Auto) Neut # (Auto) Lymph # (Auto) [place] # (Auto) Eos # (Auto) Baso # (Auto) Sodium 139 Potassium 2.8 L Chloride 103 Carbon Dioxide 28 Anion Gap 8.0 BUN 7 Creatinine 0.81 Est Cr Clr Drug Dosing Not Reportable Est GFR ( Amer) 121.2 Est GFR (Non-Af Amer) 104.6 BUN/Creatinine Ratio 8.5 L Glucose 96 Calcium 9.3 Total Bilirubin 0.5 AST 12 L ALT 27 Alkaline Phosphatase 79 Total Protein 7.8 Albumin 4.2 Globulin 3.6 Albumin/Globulin Ratio 1.2 TSH 1.340 Urine Color Urine Appearance Urine pH Ur Specific Adamant Urine Protein Urine Glucose (UA) Urine Ketones Urine Blood Urine Nitrite Urine Bilirubin Urine Urobilinogen Ur Leukocyte Esterase Urine WBC (Auto) Urine RBC (Auto) U Hyaline Cast (Auto) U Epithel Cells (Auto) Urine Bacteria (Auto) Salicylates < 1.7 L Urine Opiates Screen Ur Methadone, Qual Acetaminophen < 2 L Urine Barbiturates Ur Phencyclidine (PCP) U Amphetamin/Meth Scrn MDMA (Ecstasy) Screen U Benzodiazepines Scrn Ur Cocaine Metabolite U Marijuana (THC) Screen Ethyl Alcohol mg/dL < 3.0 07/16/19 07/17/19 07:13 06:30 WBC RBC Hgb Hct MCV MCH MCHC RDW Std Deviation RDW Coeff of Flaco Plt Count MPV Immature Gran % (Auto) Neut % (Auto) Lymph % (Auto) [place] % (Auto) Eos % (Auto) Baso % (Auto) Immature Gran # (Auto) Neut # (Auto) Lymph # (Auto) [place] # (Auto) Eos # (Auto) Baso # (Auto) Sodium Potassium 3.2 L 3.4 L Chloride Carbon Dioxide Anion Gap BUN Creatinine Est Cr Clr Drug Dosing Est GFR ( Amer) Est GFR (Non-Af Amer) BUN/Creatinine Ratio Glucose Calcium Total Bilirubin AST ALT Alkaline Phosphatase Total Protein Albumin Globulin Albumin/Globulin Ratio TSH Urine Color Urine Appearance Urine pH Ur Specific Adamant Urine Protein Urine Glucose (UA) Urine Ketones Urine Blood Urine Nitrite Urine Bilirubin Urine Urobilinogen Ur Leukocyte Esterase Urine WBC (Auto) Urine RBC (Auto) U Hyaline Cast (Auto) U Epithel Cells (Auto) Urine Bacteria (Auto) Salicylates Urine Opiates Screen Ur Methadone, Qual Acetaminophen Urine Barbiturates Ur Phencyclidine (PCP) U Amphetamin/Meth Scrn MDMA (Ecstasy) Screen U Benzodiazepines Scrn Ur Cocaine Metabolite U Marijuana (THC) Screen Ethyl Alcohol mg/dL Hospital Course (1) Suicide ideation: 07/16 - Admitted to a locked inpatient behavioral health unit, on q15 minute safety checks - Encourage medication initiation/adjustments as indicated - Encourage participation in group and recreational therapies - Gather collateral information from outpatient providers - Suggest family meeting to involve outpatient supports in safety planning - Arrange appropriate aftercare 07/17 -Patient continues to deny continued suicidal ideation and requesting discharge however, based on the acuity of her suicidal ideation and acts of furtherance such as researching means, considering rope purchased at [facility] [employer] (which she ultimately did not buy) and ongoing psychosocial stressors, patient felt to be at elevated risk for self-harm if prematurely discharged. She was advised that her 72-hour notice will be due Sunday. In the meantime, we will continue to reassess her clinical status and safety. 07/18 -Flight into health persists. Denies recurrence of suicidal ideation or any passive wish. Today she feels able to contract for safety outside of the hospital environment however she demonstrates some ambivalence about need for follow-up and we discussed the concerning nature of her initial presentation which she seems to want to minimize today. At this time I do not feel that she would meet criteria for involuntary commitment however will have her work on her safety plan and defer discharge to tomorrow morning when her 72-hour notice comes due. (2) Depressed mood: 07/16 - Attempt to gather collateral information to determine extent of depressive symptoms. By patient's report alone, it is not clear that antidepressant medications are indicated; however, it is belived that patient may be minimizing her symptoms - additional history from friends would be helpful to further clarify this. - Consider trail of an SSRI if indicated; fluoxetine may be a decent choice given concern for weight and history of disordered eating behaviors - Coordinate with [facility] regarding therapy appointment, willingness to continue seeing patient for aftercare following discharge - Will need a psychiatric prescriber if medications are offered - Coordinate with [employer] regarding academic standing and disciplinary actions related to falsified information - Encourage participation in group and recreational programming - Encourage 1:1 counseling to process individual stressors and ways to cope with her depression - Support meeting with either parents or friends 07/17 -Patient acknowledges significant depression and associated worsening anxiety. Social anxiety has been worsening. Consider role of psoriasis in her self-consciousness and suggested dermatology outpatient follow-up -Patient willing to trial Lexapro 10 mg p.o. daily after discussion of risks and benefits for mood and anxiety benefit -She was strongly advised to discontinue the weight loss supplement from [place] that she had been taking at home predating her admission and educated that many of the supplements contain stimulants that may worsen anxiety 07/18 -Patient reporting improved mood however affect outwardly appeared more down to the unit staff last evening. -Continue Lexapro 10 mg daily which she denies any side effects from so far. Reviewed importance of continued follow-up as an outpatient to improve likelihood of remission of depression and reduce risk for relapse and associated risks as well as ongoing medication management needs. Pt to review aftercare w/ [facility] (3) Hypokalemia: 07/16 - Presented as hypokalemic in the ED - K=2.8. Pt was given 40 mEq in the ED - Potassium rechecked this morning, remaining improved but still low - K=3.2 - Generally, it would be expected that nutritional intake would allow for continued improvement; however, patient is admitted to restrictive eating behav iors, having refused dinner and breakfast. - Since we cannot rely on nutritional intake alone, and additional dose of 40mEq potassium was ordered, and labs will be rechecked in the morning - Pt was strongly encouraged to eat meals routinely on the unit, though presently states she will not be eating here 07/17 -Potassium up to 3.4. Will give 2 more doses of potassium chloride 20 mEq today (4) Disordered eatin/27 - Reported history of binge-eating and purging behavior for a period of 1 year. States she has not engaged in these behavior in the past year - Pt has reported routine dietary supplements and states she is not eating meals routinely at home as "I'm not hungry" and "I'm trying to lose weight - Pt was educated on importance of fueling our bodies and minds in a healthy way, and that this is possible even with desire for weight loss - Will attempt initial encouragement; however, staff was requested to continue to observe nutritional intake and for any suspicious behavior surrounding meals - If patient is not eating meals consistently, a dietary consult should be pursued - it is possible eating disorder protocol may be necessary as well 07/17 -PO intake appears improving today however appetite remains low 07/18 -Patient reporting improved appetite today Mental Health & Subst Abuse Tx Therapist Name of Therapist: Declined on 07/16 Therapist's Time of Therapist Appointment: Referral sent - please follow up with them Therapy Appointment Comment: [address] [facility], [address], [place], [place] Travel Consultant Name of Travel Consultant: [employer] - [facility] Phone Number for Travel Consultant: [phone] Date of Appointment with Travel Consultant: 07/21/19 Time of Appointment with Travel Consultant: 2:00 p.m. Case Management Appointment Comment: [address] [place] [address] Post Discharge Appointments Primary Care Physician Name Of Family Doctor: INEZ LIRIANO Primary Care Time of Appointment with PCP: Follow up as needed Provider Appointment Comment: [facility] Smoking Cessation Counseling Tobacco Cessation Medication Prescribed at Discharge: Not Applicable/Non-Smoker Other #2: Name of Aftercare Appointment: [facility] - Bridge appt Phone Number of Aftercare Appointment: [phone] Date of Aftercare Appointment: 07/22/19 Time of Aftercare Appointment: 9:00 a.m. Aftercare Appointment Comment: [address] [place] [address] Contact Information Discharge Discharge Address: [address] [place] [address], [place] [address] Discharge Plan Discharge Items Patient Disposition: Home - Self-Care Reason For Visit: MDD Discharge Diagnosis: Depression, suicidal ideation Condition on Discharge: Good Activity: Resume your previous activity Non-emergency contact: Primary Care Provider and Waste Water Worker Call non-emergency contact if: you have any medication questions and your symptoms worsen Follow-up/Referrals: PCP,NO [Primary Care Provider] - Diet: Regular Addtl Attending Provider Instructions: Please follow-up with [facility] for therapy intake appointment and [facility] ([phone]) as we discussed for medication management follow-up. You will need to call to obtain appointments as we were not able to schedule over the holiday. Please follow up with [facility] in the meantime for medical needs. Pending Studies at Discharge: No Stand-Alone Forms: My [facility] [employer], Work/School Release (Inpt), Smoking Cessation Medications and DC Order Prescriptions: New escitalopram oxalate 10 mg Tablet 10 mg PO QAM Qty: 30 RF: 0 Discontinued Iron Jelly 1 dose PO DAILY RF: 0 Discharge Orders: Discharge Order (Routine); Ordered 07/19/19 Ordered By: Roshan Lee/Other Patient Handouts: Depression Mind Body Admission Data Admit Date/Time: 07/15/19 21:53 Attending Provider: Cecilia Kothari Admit Provider: Deepak Eaosn I. Primary Care Provider: PCP,NO Other Interventions: Discharge Summary Assessment (RN) Last Done: 07/19/19 07:33 PSY Interdisciplinary Discharge Planning Last Done: 07/19/19 07:36 Coding Level of Care Code 15035 D/C day mgmt > 30 min Diagnoses Suicide ideation R45.851 Depressed mood F32.9 Hypokalemia E87.6 Disordered eating F50.9 Eating disorder type: unspecified eating disorder Time Spent (min) 35
[2019-07-19 08:12] LABS: 7-Aminoclonaz, Confirm NEGATIVE NG/ML (CUTOFF=25); Amphetamine Urine, Confirm NEGATIVE NG/ML (CUTOFF=250); Hydro-Alp Ur, GC/MS NEGATIVE NG/ML (CUTOFF=25); Hydroxyethylflurazepam, Conf NEGATIVE NG/ML (CUTOFF=50); Hydroxytriazolam NEGATIVE NG/ML (CUTOFF=50); Lorazepam, Ur GC/MS NEGATIVE NG/ML (CUTOFF=50); Methamphetamine, Ur Confirm NEGATIVE NG/ML (CUTOFF=250); Nordiazepam, Confirm 735 NG/ML (CUTOFF=50); Oxazepam Ur, GC/MS 959 NG/ML (CUTOFF=50); Temazepam, Confirm >2000 NG/ML (CUTOFF=50)
== END 2019-07-19 08:58 | disposition home or self-care (01) | DRG 881 ==
LOC: ED 18:03 → 3S 21:53